=== PATIENT | male | born 1985 | race American Indian/Alaskan Native ===

== ENCOUNTER 2017-09-13 18:54 | Emergency (ER) | payer SELFPAY ==
--- NOTE | 2017-09-13 19:50 | EDM.PDOC ---
ED HPI GENERAL MEDICAL PROBLEM - General Chief Complaint: General Time Seen by Provider: 09/13/17 19:06 Source of Information: Reports: Patient, RN Notes Reviewed History Limitations: Reports: No Limitations - History of Present Illness INITIAL COMMENTS - FREE TEXT/NARRATIVE: The patient states that he developed rhinorrhea with nasal congestion, a dry cough, sore throat, and a subjective fever this past 09/11/2017. He then developed lower abdominal pain and diarrhea on 09/12/2016. The patient denies having sinus pressure or dyspnea. He states that he took some Jeanette- [place] tea last night, but that it did not help his symptoms. Here in the ED, the patient's temperature is found to be elevated at 103.6 F. He states that none of his contacts have been similarly ill. No prior similar symptoms. The patient did not receive an influenza vaccine this season. The patient does not have a PCP. Posterior Headache Pain Score (Numeric/FACES): 4 - Related Data Allergies Allergy/AdvReac Type Severity Reaction Status Date / Time No Known Allergies Allergy Verified 09/13/17 19:11 Home Meds: Home Meds . [No Known Home Meds] 09/13/17 [History] Past Medical History - Past Surgical History HEENT Surgical History: Reports: Oral Surgery (Dental surgery) Social & Family History - Tobacco Use Smoking Status *Q: Current Every Day Smoker Years of Tobacco use: 15 Packs/Tins Daily: 0.3 - Caffeine Use Caffeine Use: Reports: Coffee, Energy Drinks, Soda - Alcohol Use Alcohol Use History: Yes Alcohol Use Frequency: Socially - Recreational Drug Use Recreational Drug Use: Yes Drug Use in Last 12 Months: No Recreational Drug Type: Reports: Marijuana/Hashish - Living Situation & Occupation Living situation: Reports: Single, with Family (with brother, his girlfriend, their child) Occupation: Employed ([employer]) ED ROS GENERAL - Review of Systems Review Of Systems: See Below Constitutional: Reports: No Symptoms HEENT: Reports: No Symptoms Respiratory: Reports: No Symptoms Cardiovascular: Reports: No Symptoms Endocrine: Reports: No Symptoms GI/Abdominal: Reports: No Symptoms : Reports: No Symptoms Musculoskeletal: Reports: No Symptoms Skin: Reports: No Symptoms Neurological: Reports: No Symptoms Psychiatric: Reports: No Symptoms Hematologic/Lymphatic: Reports: No Symptoms Immunologic: Reports: No Symptoms ED EXAM, GENERAL - Physical Exam Exam: See Below Exam Limited By: No Limitations General Appearance: Alert, WD/WN, No Apparent Distress Eye Exam: Bilateral Eye: Normal Inspection Ears: Normal External Exam, Normal Canal, Hearing Grossly Normal, Normal TMs Nose: Normal Inspection, No Blood, Other (Bilateral nasal mucosal edema) Throat/Mouth: Normal Inspection, Normal Lips, Normal Teeth, Normal Gums, Normal Oropharynx, Normal Voice, No Airway Compromise Head: Atraumatic, Normocephalic Neck: Normal Inspection, Supple, Non-Tender, Full Range of Motion. No: Lymphadenopathy (L), Lymphadenopathy (R) Respiratory/Chest: No Respiratory Distress, Lungs Clear, Normal Breath Sounds, No Accessory Muscle Use Cardiovascular: Normal Peripheral Pulses, Regular Rate, Rhythm, No Gallop, No JVD, No Murmur, No Rub Peripheral Pulses: 4+: Radial (L), Radial (R) GI/Abdominal: Normal Bowel Sounds, Soft, Non-Tender, No Organomegaly, No Distention, No Abnormal Bruit, No Mass (Male) Exam: Deferred Rectal (Males) Exam: Deferred Back Exam: Normal Inspection, Full Range of Motion, NT Extremities: Normal Inspection, Normal Range of Motion, No Pedal Edema, Normal Capillary Refill Neurological: Alert, Oriented, Normal Cognition, No Motor/Sensory Deficits Psychiatric: Normal Affect Skin Exam: Warm, Dry, Intact, Normal Color, No Rash Course - Vital Signs Last Recorded V/S: Last Vital Signs Temp 39.8 C H 09/13/17 19:09 Pulse 107 H 09/13/17 19:09 Resp 32 H 09/13/17 19:09 BP 154/87 H 09/13/17 19:09 Pulse Ox 97 09/13/17 19:09 - Re-Assessments/Exams Free Text/Narrative Re-Assessment/Exam: 09/13/17 19:49 I have ordered an influenza swab. If it returns positive, no further workup is needed. If it returns negative, I will order blood work, a chest radiograph, and a rapid strep test. 09/13/17 20:30 The patient's influenza swab has returned positive for influenza A. Unfortunately, the patient has been symptomatic for more than 48 hours, rendering Tamiflu useless. I will recommend [id number] symptomatically relief, and I will refer him to Dr. Cardona for follow-up. Departure - Departure Time of Disposition: 20:43 Disposition: Home, Self-Care 01 Condition: Good Clinical Impression: Influenza A - Discharge Information Instructions: Influenza, Adult, [id number] Referrals: Carlos Cardona [Physician] - Forms: ED Department Discharge Additional Instructions: You were seen in the emergency room for nasal congestion, runny nose, a dry cough, sore throat, and a fever. Workup in the ER included an influenza nasal swab, which returned positive for influenza A. Unfortunately, your diagnosis was made too late to be treated with the anti- influenza medicine Tamiflu. You may find symptomatic relief of your nasal congestion and runny nose with the nasal decongestant oxymetazoline. This can be purchased [id number] - ask your pharmacist to help you find it. Purchase it in a "pump mist" bottle. Callao one spray up each nostril, wait 5 minutes, then spray a second spray up each nostril. Repeat this every 12 hours, for MAXIMUM of 5 days. We also recommend you purchase [id number] nasal saline in a pressurized bottle, such as "Simply Saline". Callao this up each nostril many times per day. For your sore throat, we recommend [id number] Tylenol or ibuprofen, Chloraseptic spray, or warm salt water gargles. Follow-up with Dr. Cardona in the clinic as needed. If any other problems, please do not hesitate to return to the ER.
== END 2017-09-13 20:58 | disposition home or self-care (01) ==
LOC: JD.ED 18:54
DX: J10.1 Influenza due to other identified influenza virus with other respiratory manifestations (principal); F17.210 Nicotine dependence, cigarettes, uncomplicated
CPT/HCPCS: 87804; 99283; 99284

== ENCOUNTER 2022-05-14 17:18 | Emergency (ER) | payer SELFPAY ==
[2022-05-14] MEDS ORDERED: Ondansetron 4 MG/2 ML SDV IVPUSH ONE (17:44)
[2022-05-14] MEDS ORDERED: Sodium Chloride 0.9% 10 ML Syringe FLUSH PRN (17:44)
[2022-05-14] MEDS ORDERED: Sodium Chloride 0.9% 1,000 ML IV SCH (17:45)
[2022-05-14] MEDS ORDERED: Iopamidol 612 MG/ML 50 ML SDV IVPUSH ONE (18:02)
[2022-05-14] MEDS ORDERED: Iopamidol 612 MG/ML 100 ML Bottle IVPUSH ONE (18:02)
[2022-05-14 18:38] LABS: ESTIMATED GFR 80 mL/min (>60)
== END 2022-05-14 20:30 | disposition home or self-care (01) ==
LOC: JD.ED 17:18
DX: K52.9 Noninfective gastroenteritis and colitis, unspecified (principal); Z86.16 Personal history of COVID-19
CPT/HCPCS: 36415; 74177; 80053; 81001; 83690; 85025; 86140; 96361; 96374; 99284; J2405; J3490; J7030; Q9967

== ENCOUNTER 2022-05-29 11:44 | Emergency (ER) | payer MEDICAID ==
[2022-05-29] MEDS ORDERED: Polyethylene Glycol 3350 Powder 17 GM Packet PO ONE (13:02)
[2022-05-29] MEDS ORDERED: Lidocaine 2% 11 ML Jelly Filled Syringe MUCMEM ONE (13:02)
== END 2022-05-29 18:13 | disposition home or self-care (01) ==
LOC: JD.ED 11:44
DX: K59.09 Other constipation (principal); Z86.16 Personal history of COVID-19
CPT/HCPCS: 74019; 99283; A9270

== ENCOUNTER 2022-05-29 23:36 | Emergency (ER) | payer MEDICAID | END 2022-05-30 03:55 | disposition home or self-care (01) | LOC: JD.ED 23:36 | DX: K59.09 Other constipation (principal); F17.210 Nicotine dependence, cigarettes, uncomplicated; Z86.16 Personal history of COVID-19 | CPT/HCPCS: 99283 ==